=== PATIENT | female | born 1975 | race Caucasian/White ===

== ENCOUNTER 2021-04-16 21:24 | Emergency (ER) | payer OTHER ==
[~2021-04-16] VITALS: Ht 165 cm; Wt 56.0 kg
[2021-04-16] MEDS ORDERED: RX-NEO/POLYB/HC OTIC (CORTISPORIN) SUSP 10 ML BTL OT STA (21:41)
--- NOTE | 2021-04-16 21:46 | ED EENT ---
History of Present Illness General Chief Complaint: Foreign Body Stated Complaint: SOMETHING IN L EAR,HEARING LOSS Nursing Triage Note: Pt here with the end of a q-tip in her left ear; states it came off while cleaning her ears last night; she tried to get it out herself with tweezers and vaseline. Pt states she can't hear out of this ear. Denies pain. Source: patient Exam Limitations: no limitations History of Present Illness Date Seen by Provider: Apr 16, 2021 Time Seen by Provider: 21:35 Initial Comments This 45-year-old woman presents to the emergency room with the cotton head of a Q-tip stuck in her left ear since last night. She was startled when a dog hit her door and accidentally shoved a Q-tip deep into her ear. The cotton tip pulled off the stem. She has tried using Vaseline and tweezers to get it out but has not been able to. It is affecting her hearing. Allergies and Home Medications Allergies Coded Allergies: No Known Drug Allergies (Unverified , 04/16/21) Patient Home Medication List Home Medication List Reviewed: Yes Review of Systems Review of Systems Constitutional: no symptoms reported Ears: See HPI Neurological: No Symptoms Reported Past Lybotet-Kgrsua-Uoflrk Hx Patient Social History Tobacco Use?: Yes Tobacco type used: Cigarettes Smoking Status: Current Everyday Smoker Substance use?: No Alcohol Use?: No Pt feels they are or have been: No Past Medical History Psychosocial: Yes Depression Physical Exam Vital Signs Vital Signs - First Documented 04/16/21 21:32 Temp 36.4 Pulse 96 Resp 18 B/P (MAP) 142/91 (108) Pulse Ox 100 O2 Delivery Room Air Height, Weight, BMI Height: '" Weight: lbs. oz. kg; 20.00 BMI Method: General Appearance: WD/WN, no apparent distress, thin Ears: right ear auricle normal, right ear canal normal, right ear TM normal; left ear other (Foreign body in canal initially obscured view. After foreign body was removed there was minor irritation and erythema of the rim of the TM. There was some purulent material around the TM as well. Skin irritation and crusting at the superior aspect of the canal opening on the left.) Neurologic/Psychiatric: alert, normal mood/affect, oriented x 3 Skin: normal color, warm/dry, other (See above) Progress/Results/Core Measures Results/Orders My Orders Orders - SHER ZULETA MD Rx-Shalom/Poly/Hc Otic Susp (Rx-Cortisporin (04/16/21 21:41) Vital Signs/I&O 04/16/21 21:32 Temp 36.4 Pulse 96 Resp 18 B/P (MAP) 142/91 (108) Pulse Ox 100 O2 Delivery Room Air Blood Pressure Mean: 108 Progress Progress Note : Progress Note Foreign body was easily removed with alligator forceps. Cortisporin drops were dispensed and administered. There was minor irritation noted on reexamination after removal of foreign body. Departure Impression Primary Impression: Foreign body in ear Qualified Codes: T16.2XXA - Foreign body in left ear, initial encounter Disposition: HOME, SELF-CARE Condition: Improved Departure-Patient Inst. Decision time for Depature: 21:44 Referrals: ELDER HENAO MD (PCP/Family) Primary Care Physician Patient Instructions: Foreign Body in the Ear, Child ED, Outer Ear Infection ED Add. Discharge Instructions: There is some irritation in your ear canal and around your eardrum which may represent some mild outer ear infection. Use 4 drops in the left ear 3 or 4 times daily for at least the next 3 days. Call with questions or concerns. Return to the ER if you have worsening symptoms. You may return to your primary care provider if you would like reexamination or have any concerns about your ear. All discharge instructions reviewed with patient and/or family. Voiced understanding. SHER ZULETA MD Apr 16, 2021 21:46
[2021-04-16 21:55] VITALS: BP 142/91
== END 2021-04-16 21:53 | disposition home or self-care (01) ==
LOC: ER 21:24
DX: T16.2XXA Foreign body in left ear, initial encounter (principal); F17.210 Nicotine dependence, cigarettes, uncomplicated
CPT/HCPCS: 99281

== ENCOUNTER 2022-05-12 22:08 | Emergency (ER) | payer OTHER ==
[~2022-05-12] VITALS: Ht 165.1 cm; Wt 58.9 kg
--- NOTE | 2022-05-12 22:35 | ED Lower Extremity ---
General Chief Complaint: Lower Extremity Stated Complaint: LEFT FOOT INJURY Nursing Triage Note: Patient states that she was sitting in a chair. Patient went to stand up and stated that her left foot was asleep. Patient tried to take a step, her foot rolled and it popped twice. Patient had immediate pain to the top of the foot. Patient denies having pain in her ankle. This happened approximately 1 hour [employer]. Minimal swelling is noted. Source: patient History of Present Illness Date Seen by Provider: May 12, 2022 Time Seen by Provider: 22:13 Initial Comments 46-year-old female presenting by private vehicle from home. She states that she was on the phone arguing with [employer] and was upset. She had thrown her phone down and went to stand up. She thinks that her foot was asleep from sitting and when she stood she felt and heard a pop twice. She felt like her foot rolled and she has severe pain to the outside of her foot. She denies ankle pain, knee pain, head injury, getting knocked out. She denies allergies to medications. She has not taken anything for the pain. She was driven here to the emergency department to be evaluated. She denies having prior injury to that foot. Onset: this evening (Approximately 45 minutes to an hour prior to arrival) Severity: severe Pain/Injury Location: left foot Method of Injury: twisted Modifying Factors: Worse With Movement Allergies and Home Medications Allergies Coded Allergies: No Known Drug Allergies (Unverified , 04/16/21) Patient Home Medication List Home Medication List Reviewed: Yes Hydrocodone/Acetaminophen (Hydrocodone-Acetamin 5-325 mg) 5 Mg-325 Mg Tablet, 1 TAB PO Q6H PRN for PAIN-SEVERE (8-10) Prescribed by: DESIRAE LEWIS on 05/12/220 Ibuprofen (Ibuprofen) 600 Mg Tablet, 600 MG PO Q6H PRN for PAIN-SEVERE (8-10) Prescribed by: DESIRAE LEWIS on 05/12/224 Review of Systems Constitutional: No chills, No fever EENTM: no symptoms reported Respiratory: no symptoms reported Cardiovascular: no symptoms reported Gastrointestinal: no symptoms reported Genitourinary: no symptoms reported Musculoskeletal: see HPI Skin: No change in color Psychiatric/Neurological: No Symptoms Reported Past Zurhggj-Eqnpsn-Kvqkyd Hx Patient Social History Tobacco Use?: No Substance use?: No Alcohol Use?: No Pt feels they are or have been: No Past Medical History Psychosocial: Yes Depression Physical Exam Vital Signs Vital Signs - First Documented 05/12/22 22:14 Temp 37.0 Pulse 114 Resp 18 B/P (MAP) 133/94 (107) Pulse Ox 96 O2 Delivery Room Air Capillary Refill : Less Than 3 Seconds Height, Weight, BMI Height: '" Weight: lbs. oz. kg; 21.00 BMI Method: General Appearance: moderate distress (Anxious and tearful at times) Cardiovascular: normal peripheral pulses, tachycardia Knees: bilateral knee non-tender, bilateral knee normal inspection, bilateral knee normal range of motion Ankles: left ankle pain (Pain with palpating pulses although patient denied having ankle pain) Feet: left foot pain (Lateral foot along the fifth metatarsal), left foot soft tissue tenderness Neurologic/Tendon: normal sensation, normal motor functions Neurologic/Psychiatric: alert, oriented x 3 Skin: normal color, warm/dry Procedures/Interventions Splinting and Joint Reduction : Location: Left foot and ankle Pre-Proc Neuro Vasc Exam: normal Post-Proc Neuro Vasc Exam: normal Progress Placed in a walking boot for the left foot and ankle. Patient was neurovascular intact both pre and post placement of the walking boot. Crutches for weightbearing as tolerated. Counseled on elevation and ice to help with pain and swelling. Limit weightbearing based on her pain. Check back through the clinic if not improving or is worsening. Progress/Results/Core Measures Results/Orders My Orders Orders - DESIRAE LEWIS MD Ice: Apply To Affected Area (05/12/22 22:14) Elevate Affected Extremity (05/12/22 22:14) Foot 3 View Left (05/12/22 22:14) Ankle 3 View Left (05/12/22 22:14) Ketorolac Injection (Toradol Injection) (05/12/22 22:47) Hydrocodone/Apap 5/325 Tablet (Lortab 5 (05/12/22 22:47) Rx-Hydrocodone/Apap 5-325 Mg (Rx-Vicodin (05/12/22 23:00) Crutches (05/12/22 22:47) Ed Ortho/Other Supplies Order (05/12/22 22:47) Orthopedic Equiment (05/12/22 22:47) Medications Given in ED Current Medications Medications Dose Ordered Sig/Corina Route Start Time Stop Time Status Last Admin Dose Admin Acetaminophen/ Hydrocodone Bitart 1 ea Q6H PRN PO 05/12/22 23:00 05/12/22 23:21 DC 05/12/22 22:58 1 EA Vital Signs/I&O 05/12/22 05/12/22 22:14 23:20 Temp 37.0 Pulse 114 96 Resp 18 16 B/P (MAP) 133/94 (107) 114/82 Pulse Ox 96 98 O2 Delivery Room Air Room Air Blood Pressure Mean: 107 Progress Progress Note #1: Progress Note Ordered ice and elevation to help with pain. X-rays of the foot and ankle to evaluate for possible fracture or acute bony abnormality. We will defer pain pills for shot until can see the x-rays to see if there was a fracture or what might be contributing to her complaint of severe pain with standing. Progress Note #2: Time: 22:38 Progress Note On my personal review and interpretation of her 3 views of the left foot and 3 views of the left ankle she had no acute fracture dislocation. Since she is still crying out if anyone even reaches towards her foot let alone lightly touching it will give a pain shot and see if she will tolerate being put in a walking boot and getting crutches for weight bearing as tolerated. With resting her foot and limiting movement while treating for pain and inflammation hopefully it will start feeling better. Will need to follow up with clinic or orthopedics if not improving this next week. Continue with ice and elevation. May use over the counter Ibuprofen or the prescription. For next 3 days will give a short course of Hydrocodone for severe pain. If the pain is not that severe she could use ibuprofen and/or acetaminophen over the counter. Diagnostic Imaging Diagonstic Imaging: Xray Plain Films/CT/US/NM/MRI: ankle Comments Personal interpretation and review of the three-view films of her left ankle she has no acute fracture or dislocation. Reviewed: Reviewed by Me Diagonstic Imaging: Xray Plain Films/CT/US/NM/MRI: other (foot) Comments On my personal interpretation and review of the three-view films of her left foot she has no acute fracture or dislocation. Reviewed: Reviewed by Me Departure Impression Primary Impression: Pain in left foot Additional Impression: Strain of left foot Qualified Codes: S96.912A - Strain of unspecified muscle and tendon at ankle and foot level, left foot, initial encounter Disposition: 01 HOME, SELF-CARE Condition: Stable Departure-Patient Inst. Decision time for Depature: 23:13 Referrals: ELDER HENAO MD (PCP/Family) Primary Care Physician Patient Instructions: Opioids for Short-Term Treatment of Pain ED, Using Cold for Pain, Walking Boot, Foot Sprain ED Add. Discharge Instructions: Use the walking boot and crutches for weight bearing as you tolerate it for the next 5 to 7 days. If not having improvement in pain then check with clinic or Orthopedics for additional evaluation. Use Ibuprofen over the counter 3 of the 200 mg pills every 6 to 8 hours as needed for pain and inflammation. Alternatively you could use the prescription form of the Ibuprofen. For severe pain you could try the Hydrocodone with acetaminophen. Ice and elevate your foot as much as possible to help with pain and swelling. Follow up this upcoming week with PCP clinic through [facility]. If still having severe pain they may have you see Orthopedics such as Dr. Sea Black or Nurse practitioner Toni Bowman here in [place]. All discharge instructions reviewed with patient and/or family. Voiced understanding. Scripts Hydrocodone/Acetaminophen (Hydrocodone-Acetamin 5-325 mg) 5 Mg-325 Mg Tablet 1 TAB PO Q6H PRN for PAIN-SEVERE (8-10) for 5 Days, #20 TAB 0 Refills Prov: DESIRAE LEWIS MD 05/12/22 Ibuprofen (Ibuprofen) 600 Mg Tablet 600 MG PO Q6H PRN for PAIN-SEVERE (8-10) for 10 Days, #40 TAB 0 Refills Prov: DESIRAE LEWIS MD 05/12/22 Work/School Note: Work Release Form Date Seen in the Emergency Department: May 12, 2022 Return to Work: May 15, 2022 Restrictions: No PE-Until Released Other Restrictions Listed Below: Light duty while in boot and on crutches x 2 weeks Restrictions: Limit use of left foot, standing, walking x 2 weeks DESIRAE LEWIS MD May 12, 2022 22:35
[2022-05-12] MEDS ORDERED: KETOROLAC 60 MG/2 ML VIAL IM STA (22:47)
[2022-05-12] MEDS ORDERED: HYDROcodone/APAP 5 MG/325 MG (LORTAB) TAB PO STA (22:47)
[2022-05-12] MEDS ORDERED: ACHD5005 PO (23:17)
[2022-05-12] MEDS ORDERED: IBUP-1773 PO (23:17)
[2022-05-12 23:20] VITALS: BP 114/82
--- NOTE | 2022-05-13 06:43 | Diagnostic Imaging Report ---
INDICATION: Left foot injury with pain and swelling. COMPARISON: None. DISCUSSION: Three views of left foot were obtained. No acute fracture, dislocation, or other osseous abnormality identified. No significant degenerative disease. Alignment is anatomic. Soft tissues are unremarkable. IMPRESSION: 1. Negative left foot. Dictated by: Dictated on workstation # [id number]
--- NOTE | 2022-05-13 06:43 | Diagnostic Imaging Report ---
INDICATION: Left foot injury with pain and swelling. COMPARISON: None. DISCUSSION: Three views of the left ankle were obtained. Ankle mortise is symmetric. No fracture or dislocation. Alignment is anatomic. Soft tissues are unremarkable. IMPRESSION: 1. Negative left ankle. Dictated by: Dictated on workstation # [id number]
== END 2022-05-12 23:21 | disposition home or self-care (01) ==
LOC: EDUNIT# 22:08 → ER FS 22:12
DX: S96.912A Strain of unspecified muscle and tendon at ankle and foot level, left foot, initial encounter (principal); X50.1XXA Overexertion from prolonged static or awkward postures, initial encounter
CPT/HCPCS: 73610; 73630